=== PATIENT | male | born 1990 | race Hispanic/Latino ===

== ENCOUNTER 2017-04-07 00:43 | Emergency (ER) | payer BC ==
[2017-04-07] MEDS ORDERED: Ibuprofen 800 MG TAB ONE (01:15)
[2017-04-07] MEDS ORDERED: Acetaminophen/Codeine 30-300mg Tablet ONE (01:15)
--- NOTE | 2017-04-07 08:37 | RAD ---
TWO VIEW CHEST: Indication: Productive cough. Fever. FINDINGS: Right hemidiaphragm is elevated. No consolidation or effusion. Cardiac silhouette is within normal li mits of size and the osseous structures are intact. IMPRESSION: No focal consolidation. POS: [facility]
== END 2017-04-07 01:36 | disposition home or self-care (01) ==
LOC: SCSER 00:43
DX: J06.9 Acute upper respiratory infection, unspecified (principal); R07.82 Intercostal pain; J45.909 Unspecified asthma, uncomplicated; F41.9 Anxiety disorder, unspecified; F32.9 Major depressive disorder, single episode, unspecified
CPT/HCPCS: 71046; 87804; 99283

== ENCOUNTER 2019-01-06 10:49 | Emergency (ER) | payer BC, OTHER | END 2019-01-06 11:18 | disposition home or self-care (01) | LOC: SCSER 10:49 | DX: R22.0 Localized swelling, mass and lump, head (principal); F41.9 Anxiety disorder, unspecified; F32.9 Major depressive disorder, single episode, unspecified | CPT/HCPCS: 99282 ==